=== PATIENT | female | born 1965 | race Caucasian/White ===

== ENCOUNTER → 2019-03-27 | Outpatient (CLI) | payer BC, SELFPAY ==
[2019-03-27 16:09] LABS: Anion Gap 8 (5-15); BUN 11 mg/dL (7-18); Calcium,Total 9.4 mg/dL (8.5-10.1); Chloride 106 mmol/L (98-107); Creatinine, Serum 0.65 mg/dL (0.55-1.02); EST Glomerular Filtration Rate 102 mL/min (>60); Est Glom Filt Rate - Afr Amer 123 mL/min (>60); Glucose 79 mg/dL (74-106); Potassium 3.4 mmol/L (3.5-5.1); Sodium Level 141 mmol/L (136-145); Thyroid Stim Hormone (TSH) 1.65 uIU/mL (0.358-3.74)
[2019-03-27 16:22] LABS: Vitamin D,25 Hydroxy 46.2 ng/mL (29.95-100.01)
== END | disposition home or self-care (01) ==
LOC: MFPLAB 14:24
PROVIDERS: Family Provider Family Medicine; PCP Family Medicine; Referring Provider Family Medicine; Visit Provider Family Medicine
DX: M79.10 Myalgia, unspecified site (principal)
CPT/HCPCS: 36415; 80048; 82306; 84443

== ENCOUNTER → 2020-05-22 16:07 | Outpatient (CLI) | payer BC, SELFPAY ==
[2020-05-14 13:29] VITALS: BMI 26.2
== END ==
PROVIDERS: PCP Family Medicine; Visit Provider Family Medicine
DX: Z20.828 Contact with and (suspected) exposure to other viral communicable diseases (principal)
CPT/HCPCS: 87635; U0003

== ENCOUNTER → 2020-07-08 10:29 | Outpatient (CLI) | payer BC, SELFPAY ==
[2020-05-14 13:29] VITALS: BMI 26.2
--- NOTE | 2020-07-08 10:32 | BI_ITS ---
MAMMOGRAPHY - BILATERAL SCREENING REASON FOR EXAM: Female, 54 years old. Routine annual screening examination. PERTINENT HISTORY: Non-contributory. TECHNIQUE: Digital bilateral breast gene (3D mammographic acquisition) in the CC and MLO projections. 2-D mediolateral oblique (MLO) and craniocaudad (CC) views of both breasts were obtained. CAD: Full Field Digital Mammography with Computer Added Detection was performed. COMPARISON: Comparison is made with prior outside examination dated 05/02/2015. FINDINGS: Breast Composition: The breasts are heterogeneously dense, which may obscure small masses. There are no dominant masses or suspicious calcifications. No other significant abnormalities are identified. There has been no significant change since the prior study. BI/SCREEN MAMM (CAD) W/GENE BILAT IMPRESSION: Stable bilateral screening mammogram. Yearly follow-up mammogram recommended. (A) ASSESSMENT CATEGORY: BIRADS Category 1: Negative. A letter regarding these results will be sent to the patient by the facility within 30 days. Approximately 10% of breast cancers are not detected by mammography. A normal mammogram should not delay biopsy of a clinically suspicious abnormality. [id number] Electronically Signed: Dylan Palencia, at 12:36 EST , Service support ,
== END ==
PROVIDERS: PCP Family Medicine; Referring Provider Obstetrics & Gynecology; Visit Provider Obstetrics & Gynecology
DX: Z12.31 Encounter for screening mammogram for malignant neoplasm of breast (principal)
CPT/HCPCS: 77063; 77067

== ENCOUNTER → 2021-04-07 11:26 | Outpatient (CLI) | payer BC, SELFPAY ==
[2021-04-07 15:23] LABS: Erythrocyte Sedimentation Rate 8 mm/hr (0-30)
[2021-04-07 15:24] LABS: Absolute Lymphocyte Count 1.24 X10^3/uL (0.83-4.51); Absolute Neutrophil Count 2.4 X10^3/uL (2.0-7.7); Basophil# 0.04 X10^3/uL; Basophil% 0.9 % (0-1); Eosinophil# 0.11 X10^3/uL; Eosinophils% 2.6 % (0-5); Hematocrit 39.2 % (37-47); Hemoglobin 12.9 g/dL (12.0-15.0); Lymphocyte # 1.24 X10^3/ul (0.83-4.51); Lymphocyte % 29.1 % (19-41); Mean Corp Hgb Conc 32.9 g/dL (32-36); Mean Corpuscular Hgb 29.2 pg (27.0-32.0); Mean Corpuscular Volume 88.7 fL (81-99); Mean Platelet Vol. 10.1 fl (6.2-12.0); Monocyte# 0.42 X10^3/uL; Monocyte% 9.9 % (0-10); NRBC Flagged by Analyzer 0 % (0-5); Neutrophil # 2.43 X10^3/uL (2.7-7.7); Platelet Count 259 K/mm3 (150-450); RBC Distribution Width CV 12.5 % (11.6-14.6); RBC Distribution Width SD 40.5 fl (35.1-43.9); Red Blood Count 4.42 M/mm3 (4.2-5.4); White Blood Count 4.3 K/mm3 (4.4-11.0)
[2021-04-07 16:01] LABS: AST(SGOT) 18 U/L (15-37); Alanine Aminotransfer ALT/SGPT 26 U/L (13-56); Albumin, Serum 3.8 g/dL (3.2-5.0); Alkaline Phosphatase 54 U/L (45-117); Anion Gap 7 (5-15); BUN 14 mg/dL (7-18); BUN/Creat Ratio 19.5 RATIO (10-20); Calcium,Total 9.2 mg/dL (8.5-10.1); Chloride 105 mmol/L (98-107); Creatinine, Serum 0.72 mg/dL (0.55-1.02); EST Glomerular Filtration Rate 90 mL/min (>60); Est Glom Filt Rate - Afr Amer 109 mL/min (>60); Free T3 3.2 pg/mL (2.18-3.98); Globulin 3.9 g/dL (2.2-4.2); Glucose 90 mg/dL (74-106); Iron 61 ug/dL (50-170); Potassium 3.5 mmol/L (3.5-5.1); Protein, Total 7.7 g/dL (6.4-8.2); Rheumatoid Factor < 10.0 IU/mL (<15); Sodium Level 141 mmol/L (136-145); Thyroid Stim Hormone (TSH) 1.43 uIU/mL (0.358-3.74)
[2021-04-07 16:55] LABS: Vitamin B12 589 pg/mL (211-911); Vitamin D,25 Hydroxy 35.7 ng/mL
[2021-04-09 14:46] LABS: ANTINUCLEAR ANTIBODIES DIRECT Negative (Negative)
[2021-04-23 15:22] LABS: Complement CH50 > 60 U/mL (>41)
== END ==
PROVIDERS: PCP Family Medicine; Referring Provider Family Medicine; Visit Provider Family Medicine
DX: M79.10 Myalgia, unspecified site (principal); R53.83 Other fatigue
CPT/HCPCS: 36415; 80053; 81291; 82306; 82533; 82607; 83540; 84439; 84443; 84481; 85025; 85652; 86038; 86140; 86162; 86431

== ENCOUNTER → 2022-06-08 | Outpatient (CLI) | payer BC, SELFPAY ==
[2022-06-08 15:12] LABS: Erythrocyte Sedimentation Rate 22 mm/hr (0-30)
[2022-06-08 15:15] LABS: Basophil# 0.05 X10^3/uL; Basophil% 0.8 % (0-1); Eosinophil# 0.09 X10^3/uL; Eosinophils% 1.5 % (0-5); Hematocrit 39.5 % (37-47); Hemoglobin 13.4 g/dL (12.0-15.0); Lymphocyte % 23.7 % (19-41); Mean Corp Hgb Conc 33.9 g/dL (32-36); Mean Corpuscular Hgb 29.3 pg (27.0-32.0); Mean Corpuscular Volume 86.4 fL (81-99); Mean Platelet Vol. 10.3 fl (6.2-12.0); Monocyte# 0.35 X10^3/uL; Monocyte% 5.9 % (0-10); NRBC Flagged by Analyzer 0 % (0-5); Neutrophil # 4.01 X10^3/uL (2.7-7.7); Neutrophil % 67.9 % (47-70); Platelet Count 338 K/mm3 (150-450); RBC Distribution Width CV 13.2 % (11.6-14.6); RBC Distribution Width SD 40.8 fl (35.1-43.9); Red Blood Count 4.57 M/mm3 (4.2-5.4); White Blood Count 5.9 K/mm3 (4.4-11.0)
[2022-06-08 15:18] LABS: Vitamin D,25 Hydroxy 31.1 ng/mL
[2022-06-08 15:32] LABS: Anion Gap 8 (5-15); BUN 12 mg/dL (7-18); BUN/Creat Ratio 19.4 RATIO (10-20); CRP 6.33 mg/L (0.0-3.0); Calcium,Total 9.4 mg/dL (8.5-10.1); Chloride 105 mmol/L (98-107); Creatinine, Serum 0.62 mg/dL (0.55-1.02); EST Glomerular Filtration Rate 106 mL/min (>60); Est Glom Filt Rate - Afr Amer 128 mL/min (>60); Glucose 93 mg/dL (74-106); Potassium 3.9 mmol/L (3.5-5.1); Sodium Level 140 mmol/L (136-145); T4 Free Direct 1.12 ng/dL (0.76-1.46); Thyroid Stim Hormone (TSH) 1.32 uIU/mL (0.358-3.74)
== END | disposition home or self-care (01) ==
LOC: MFPLAB 11:46
PROVIDERS: PCP Family Medicine; Referring Provider Family Medicine; Visit Provider Family Medicine
DX: M79.7 Fibromyalgia (principal); E55.9 Vitamin D deficiency, unspecified
CPT/HCPCS: 36415; 80048; 82306; 82533; 83735; 84439; 84443; 85025; 85652; 86140

== ENCOUNTER → 2022-11-24 | Outpatient (CLI) | payer BC, SELFPAY ==
--- NOTE | 2022-11-24 07:21 | BI_ITS ---
MAMMOGRAPHY - BILATERAL SCREENING REASON FOR EXAM: Female, 57 years old. Routine annual screening examination. PERTINENT HISTORY: Non-contributory. TECHNIQUE: Digital bilateral breast gnee (3D mammographic acquisition) in the CC and MLO projections. 2-D mediolateral oblique (MLO) and craniocaudad (CC) views of both breasts were obtained. CAD: Full Field Digital Mammography with Computer Added Detection was performed. COMPARISON: Mammogram from 07/08/2020. FINDINGS: Breast Composition: The breasts are heterogeneously dense, which may obscure small masses. There are no dominant masses or suspicious calcifications. No other significant abnormalities are identified. There has been no significant change since the prior study. BI/SCRN MAMM (CAD)W/GENE BILAT IMPRESSION: Stable bilateral screening mammogram. Yearly follow-up mammogram recommended. (A) ASSESSMENT CATEGORY: BIRADS Category 1: Negative. A letter regarding these results will be sent to the patient by the facility within 30 days. Approximately 10% of breast cancers are not detected by mammography. A normal mammogram should not delay biopsy of a clinically suspicious abnormality. Electronically Signed: Juanito Dunne DO at 9:51 EDT ,
== END | disposition home or self-care (01) ==
LOC: OPBI 07:19
PROVIDERS: PCP Family Medicine; Referring Provider Family Medicine; Visit Provider Family Medicine
DX: Z12.31 Encounter for screening mammogram for malignant neoplasm of breast (principal)
CPT/HCPCS: 77063; 77067

== ENCOUNTER → 2023-12-16 | Outpatient (CLI) | payer BC, SELFPAY ==
--- NOTE | 2023-12-16 09:53 | BI_ITS ---
MAMMOGRAPHY - BILATERAL SCREENING REASON FOR EXAM: Female, 58 years old. Routine annual screening examination. PERTINENT HISTORY: Non-contributory. TECHNIQUE: Digital bilateral breast gene (3D mammographic acquisition) in the CC and MLO projections. 2-D mediolateral oblique (MLO) and craniocaudad (CC) views of both breasts were obtained. CAD: Full Field Digital Mammography with Computer Added Detection was performed. COMPARISON: Comparison is made with prior study November 24, 2022 and July 08, 2020. FINDINGS: Breast Composition: The breasts are heterogeneously dense, which may obscure small masses. There are 2, adjacent 1 cm nodule seen in the deep upper aspect of the right breast as seen on the cranial cavity that view. These appear to be slightly lateral on the craniocaudad view. The patient will be recalled for additional views including a 90 degree lateral and compression spot views of the right breast. Stable bilateral fat containing axillary lymph nodes. No other significant abnormalities are identified. BI/SCRN MAMM (CAD)W/GENE BILAT IMPRESSION: There are 2 adjacent 1 cm nodules in the right breast as described. The patient will be recalled for additional views. Recall Side: Right Breast ASSESSMENT CATEGORY: BIRADS Category 0: Incomplete. Need additional imaging evaluation. A letter regarding these results will be sent to the patient by the facility within 30 days. Approximately 10% of breast cancers are not detected by mammography. A normal mammogram should not delay biopsy of a clinically suspicious abnormality. [id number] Electronically Signed: Dylan Palencia MD at 11:12 EDT ,
== END | disposition home or self-care (01) ==
LOC: OPBI 09:52
PROVIDERS: PCP Family Medicine; Referring Provider Family Medicine; Visit Provider Family Medicine
DX: Z12.31 Encounter for screening mammogram for malignant neoplasm of breast (principal)
CPT/HCPCS: 77063; 77067

== ENCOUNTER → 2023-12-20 | Outpatient (CLI) | payer BC, SELFPAY ==
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
== END | disposition home or self-care (01) ==
PROVIDERS: PCP Family Medicine; Referring Provider Family Medicine; Visit Provider Family Medicine
DX: R92.8 Other abnormal and inconclusive findings on diagnostic imaging of breast (principal)
CPT/HCPCS: 76642; 77065

== ENCOUNTER → 2023-12-30 | Outpatient (CLI) | payer BC, SELFPAY ==
--- NOTE | 2023-12-30 | BRBX_PTH ---
PATIENT: LARRY GODDARD LOC: [facility] U#:[id number] AGE/SX: 58/F ROOM: RE12/30/[address]: Dr. Clem Askew MD : 1965 BED: DIS: 12/30/2023 SPEC #: [id number] RECD: 12/30/23 16:06 STATUS: FLORENCIA TAN #: [id number] MARQUIS: 12/30/23 00:[address]: Clem Askew DEPT: SURGICAL PATHOLOGY RECD BY: Gianni Urena ENTERED: 01/02/24 07:40 SP TYPE: BREAST BX OTHR DR: Dr. Yared Elliott MD Tissues: A - Right breast, NOS B - Right breast, NOS Procedures: Surgery Specimen Level IV HEADER OPERATION: Ultrasound guided right breast biopsy PRE-OP DIAGNOSIS: Right breast abnormal mammogram and ultrasound TISSUE SUBMITTED: A- Right breast nodule fibroadenoma-medial, B- Right breast nodule round- lateral MICROSCOPIC DIAGNOSIS A. Right breast nodule, core biopsy: Fibroadenoma. B. Right breast nodule, lateral, core biopsy: Fibrosis and collagenosis. Minimal duct ectasia. No evidence of malignancy. / 01/03/2024 COMMENT Case has been reviewed in consultation with Dr. Haque who concurs with the above diagnosis. IDC:[email or web address] MICROSCOPIC DESCRIPTION Slides are reviewed. GROSS DESCRIPTION A. Received in fixative is one container labeled with the patient's name and designated Right breast #1. The specimen consists of multiple elongated fragments of sue -yellow tissue that in aggregate measure 2.5 x 0.5 x 0.1 cm. The specimen is totally submitted in one cassette. B. Received in fixative is one container labeled with the patient's name and designated Right breast #2. The specimen consists of multiple elongated fragments of sue -yellow tissue that in aggregate measure 2.5 x 0.5 x 0.1 cm. The specimen is totally submitted in one cassette. / 01/02/2024 TC:5 CPT:25092x4
--- NOTE | 2023-12-30 14:44 | US_ITS ---
ULTRASOUND GUIDED CORE BIOPSY REASON FOR EXAM: Female, 58 years old. Abnormal ultrasound of right breast PERTINENT HISTORY: Abnormal ultrasound of the right breast. COMPARISON: Comparison is made with prior ultrasound of the right breast dated December 20, 2023. TECHNIQUE: (All elements of maximal sterile barrier technique followed, including US elements as applicable) Upon arrival to the breast imaging department the patient''s identification was confirmed and the RIGHT breast was marked according to time-out protocol. Ultrasound guided core biopsy and clip placement, to include potential risks and complications, was explained in full to the patient. Written and verbal consent were obtained prior to initiation of the procedure. The RIGHT breast was prepped and draped in standard sterile fashion and local anesthesia was obtained with 1% buffered lidocaine. A small dermatotomy was then made to introduce the core biopsy needle. Under ultrasound guidance multiple core samples were obtained with a 13 gauge needle and submitted in formalin for pathology. A titanium clip was then deployed into the biopsy cavity under ultrasound guidance. Upon completion of the procedure hemostasis was obtained and sterile dressing was applied. The patient tolerated the entire procedure without immediate complication and was discharged from the breast imaging department in good condition. IMPRESSION: Ultrasound guided core biopsy of a 8 mm x 7 mm x 2 mm mass in the RIGHT breast at the 12:00 position of the breast at 2 cm from the nipple without complication. Electronically Signed: Dylan Palencia MD at 14:03 EDT , ULTRASOUND GUIDED CORE BIOPSY REASON FOR EXAM: Female, 58 years old. Abnormal ultrasound of breast PERTINENT HISTORY: Abnormal ultrasound of the right breast. COMPARISON: None. TECHNIQUE: (All elements of maximal sterile barrier technique followed, including US elements as applicable) Upon arrival to the breast imaging department the patient''s identification was confirmed and the RIGHT breast was marked according to time-out protocol. Ultrasound guided core biopsy and clip placement, to include potential risks and complications, was explained in full to the patient. Written and verbal consent were obtained prior to initiation of the procedure. The RIGHT breast was prepped and draped in standard sterile fashion and local anesthesia was obtained with 1% buffered lidocaine. A small dermatotomy was then made to introduce the core biopsy needle. Under ultrasound guidance multiple core samples were obtained with a 13 gauge needle and submitted in formalin for pathology. A titanium clip was then deployed into the biopsy cavity under ultrasound guidance. Upon completion of the procedure hemostasis was obtained and sterile dressing was applied. The patient tolerated the entire procedure without immediate complication and was discharged from the breast imaging department in good condition. US/US Breast Biopsy 1st Lesion IMPRESSION: Ultrasound guided core biopsy of a 5 mm x 4 mm x 4 mm mass in the RIGHT breast at the 11:00 position in the breast at 4 cm from the nipple. without complication. Electronically Signed: Dylan Palencia MD at 14:04 EDT ,
--- NOTE | 2023-12-30 15:51 | PCM.OPRPT ---
Report of Operation Date of Procedure: 12/30/23 Pre-Operative Diagnosis: Right breast abnormal mammogram and ultrasound Post-Operative Diagnosis: Same Surgery/Procedure Performed:: Ultrasound-guided biopsy of the right breast x 2 Type of Anesthesia: Local Specimen's removed: Biopsy of both breast areas Description of Procedure: Patient was brought back to the endoscopy suite and all 3 of the abnormalities found on ultrasound were identified. I decided to biopsy the possible fibroadenoma as well as the round lesion and not to biopsy the cyst. An area of skin lateral to these lesions at the 11 and 12 o'clock position was prepped and draped in usual sterile fashion and injected with local anesthetic. Small robinson was made with a scalpel. Under ultrasound guidance a mammotome needle was placed into the fibroadenoma like 1 at 12:00 and it was biopsied and then a coil clip was placed into this area. Next under ultrasound guidance the more lateral 11:00 round lesion was biopsied and then a ribbon clip was placed into this lesion. The patient did have a small hematoma forming from the first biopsy and pressure was held. A Steri-Strip and bandage were then placed over the incision and mammogram will be obtained. I advised the patient tight wrap for the hematoma and to call me if there is any large amount of swelling or tension in the breast.
== END | disposition home or self-care (01) ==
LOC: OPUS 14:42
PROVIDERS: PCP Family Medicine; Referring Provider Surgery; Visit Provider Surgery
DX: R92.8 Other abnormal and inconclusive findings on diagnostic imaging of breast (principal)
CPT/HCPCS: 19083; 19084; 88305

== ENCOUNTER 2024-04-27 16:25 | Emergency (ER) | payer SELFPAY ==
[2024-04-27 16:27] VITALS: BP 133/85; PULSE 116; RESP 17; TEMP 36.7; O2SAT 98; BMI 29.6
[2024-04-27 16:31] VITALS: O2SAT 98
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
--- NOTE | 2024-04-27 17:40 | RAD_ITS ---
INDICATION: great toe pain EXAMINATION/TECHNIQUE: X-RAY - LEFT XR Foot Min 3 Views 3 VIEWS COMPARISON: FINDINGS: SOFT TISSUES: No soft tissue swelling or gas. No radiopaque foreign body. BONES/JOINTS: No acute fracture or subluxation.. Normal alignment. Preservation of the joint space.. No sclerotic or destructive changes observed. RAD/Foot min 3 Views IMPRESSION: Negative. Electronically Signed: Yg Vang DO at 18:52 EDT ,
--- OUTSIDE RECORDS SUMMARY | 2024-04-27 17:47 | XMS RPT_ITS | CCD ---
Author Organization [facility] Care Team Providers Care Oncology Admin Name Role Phone Earl JACKSON, Yared Deena [facility] Provide r JONE MOLINA Attending Unava ilable [facility] Unavail able CLINT, REINAIvania CLARKRY Attending Unavailable [facility] CLINT, REINA SABRY Referring Unavailable CLINT, REINA SABRY Admitting Un[facility] CLINT, REINA SABRY Attending Unavailable [facility] CLINT, REINA SABRY Referring Unavailable CLINT, REINA SABRY Admitting [facility]available [facility] Primary Care Unavail able CLINT, REINA SABRY Attending Unavailable [facility]avail able FRANCISCO CANDELARIA JR. Attending Unavailable [facility] Unavail able TEAGAN JR., FRANCISCO Admitting Unavailable TEAGAN JR., FRANCISCO Referring Unavailable [facility]av[facility] CLINT, REINA SABRY Attending Unavailable [facility]av[facility] CLINT, REINA SABRY Referring Unavailable CLINT, REINA SABRY Admitting Unavailable [facility] Unavail able CLINT, REINA SABRY Attending Unavailable [facility]av[facility] able CLINT, REINA SABRY Referring Unavailable CLINT, REINA SABRY Admitting Unavailable Allergies Allergy Classification Reported Allergen(s) Allergy Type Date of Onset Reaction(s) Facility cow milk allergenic extract (1 source) cow milk allergenic extract Drug Allergy 07-18-2015 Anaphylaxis [facility] Lactase (1 source) Lactase Drug Allergy 04-25-2015 Anaphylaxis [facility] Wheat gluten extract (1 source) Wheat gluten extract Drug Allergy 04-25-2015 Anaphylaxis [facility] (7 sources) cow milk allergenic extract; Translations: [MILK] Drug Allergy 07-18-2015 Anaphylaxis [facility] (7 sources) Lactase; Translations: [LACTASE] Drug Allergy 04-25-2015 Anaphylaxis [facility] (7 sources) Wheat gluten extract; Translations: [GLUTEN] Drug Allergy 04-25-2015 Anaphylaxis [facility] Medications Current Medications Medication Drug Class(es) Dates Sig (Normalized) Sig (Original) biotin 5 mg oral capsule (5 sources) End: 12-30-2023 biotin 5 mg cap 1 (one) capsule (5 mg total) every night at bedtime . 12/30/2023 Discontinued (Patient's Request) cyclobenzaprine hydrochloride 10 mg oral tablet (6 sources) Muscle Relaxant cyclobenzaprine (FLEXERIL) 10 MG tablet 1 (one) tablet (10 mg total) . Active DULoxetine 30 mg delayed release oral capsule (6 sources) Serotonin and Norepinephrine Reuptake Inhibitor take 1 capsule by mouth once daily DULoxetine (CYMBALTA) 30 MG capsule Take 1 (one) capsule (30 mg total) by mouth daily . Active fluticasone propionate 0.05 mg/actuat metered dose nasal spray (6 sources) Corticosteroid fluticasone propionate (Flonase Allergy Relief) 50 mcg/actuation nasal spray 1 (one) spray every night at bedtime . Active meloxicam 15 mg oral tablet (6 sources) Nonsteroidal Anti-inflammatory Drug take 1 tablet by mouth once daily meloxicam (MOBIC) 15 MG tablet Take 1 (one) tablet (15 mg total) by mouth daily . Active traZODone hydrochloride 100 mg oral tablet (6 sources) Serotonin Reuptake Inhibitor take 0.5 tablet by mouth once daily as needed for sleep traZODone (DESYREL) 100 MG tablet Take 0.5 (one-half) tablet (50 mg total) by mouth nightly as needed for sleep . Active take 1 tablet by jaqueline th once daily as needed for sleep traZODone (DESYREL) 100 MG tablet Take 1 (one) tablet (100 mg total) by mouth nightly as needed for sleep . 0 Active Completed/Discontinued Medications Medication Drug Class(es) Dates Sig (Normalized) Sig (Original) acetaminophen 325 mg / oxyCODONE hydrochloride 5 mg oral tablet (1 source) Opioid Agonist Start: 10-22-2023 End: 10-25-2023 take 1 tablet by mouth every six hours as needed for pain oxyCODONE-acetamino phen (PERCOCET) 5-325 mg per tablet Indications: Closed nondisplaced fracture of fifth metatarsal bone of right foot, initial encounter Take 1 (one) tablet by mouth every 6 (six) hours as needed for pain . 12 tablet 0 10/22/2023 10/25/2023 Problems Active Problems Problem Classification Problem Date Documented Da te Episodic/Chronic Other connective tissue disease (4 sources) Pain in right foot; Translations: [Pain in right foot] 10-24-2023 Episodic Past or Other Problems Problem Classification Problem Date Documented Da te Episodic/Chronic Fracture of lower limb (12 sources) Closed fracture of fifth metatarsal bone; Translations: [Nondisplaced fracture of fifth metatarsal bone, right foot, initial encounter for closed fracture] Onset: 10-22-2023 10-24-2023 Episodic Other connective tissue disease (2 sources) Pain in right foot; Translations: [Pain in right foot] Onset: 10-24-2023 Episodic Results Test Name Value Interpretation Reference Range Facil ity XR FOOT RIGHT 3+ VIEWS (JESSICA DARD)on 01-17-2024 XR FOOT RIGHT 3+ VIEWS (STANDARD) Improved osseous consolidation/trabecu lation at the base of the fifth metatarsal fracture site in comparison to prior radiographs. Dictated by: REINA JARAMILLO on TueJan 18, 2024 1:43:16 AM EDT Transcribed by: REINA JARAMILLO on TueJan 18, 2024 1:43:16 AM EDT Finalized by: REINA JARAMILLO on TueJan 18, 2024 1:43:16 AM EDT Normal [facility] Comment on above: Order Comment: Injur y/Trauma or Illness?:Injury/Trauma How long have you had these symptoms (acute/chronic)?:Chronic Reason for exam?:metatarsal fracture History of cancer?:n Surgeries, chemotherapy, or radiation?:n Type of Exam?:Subsequent/Follow-up Mechanism of injury?:steped off porch XR FOOT RIGHT 3+ VIEWS (JESSICA DARD)on 12-27-2023 XR FOOT RIGHT 3+ VIEWS (STANDARD) Improved osseous consolidation/trabecu lation at the base of the fifth metatarsal fracture site in comparison to prior radiographs. Dictated by: REINA JARAMILLO on TueDec 30, 2023 3:40:35 AM EDT Transcribed by: REINA JARAMILLO on TueDec 30, 2023 3:40:35 AM EDT Finalized by: REINA JARAMILLO on TueDec 30, 2023 3:40:[address] [facility] Comment on above: Order Comment: Injur y/Trauma or Illness?:Injury/Trauma How long have you had these symptoms (acute/chronic)?:Acute Reason for exam?:metatarsal fracture History of cancer?:n Surgeries, chemotherapy, or radiation?:n Type of Exam?:Subsequent/Follow-up Mechanism of injury?:stepped off porch Cast removalon 12-07-2023 Danyll removed cast [facility] XR FOOT RIGHT 3+ VIEWS (JESSICA DARD)on 12-07-2023 XR FOOT RIGHT 3+ VIEWS (STANDARD) Mildly comminuted fifth metatarsal base fracture consistent with a Conner. Cast present. Increased trabeculation based on radiographs compared to prior radiographs seen. Dictated by: FRANCISCO CANDELARIA on TueDec 07, 2023 5:13:02 PM EDT Transcribed by: FRANCISCO CANDELARIA on TueDec 07, 2023 5:13:02 PM EDT Finalized by: FRANCISCO CANDELARIA on TueDec 07, 2023 5:13:02 PM EDT [facility] Comment on above: Order Comment: Injur y/Trauma or Illness?:Illness/Other How long have you had these symptoms (acute/chronic)?:Chronic Reason for exam?:metatarsal fracture History of cancer?:n Surgeries, chemotherapy, or radiation?:n Type of Exam?:Subsequent/Follow-up Additional signs and symptoms?:in cast XR FOOT RIGHT 3+ VIEWS (JESSICA DARD)on 11-14-2023 XR FOOT RIGHT 3+ VIEWS (STANDARD) Minimally displaced fifth metatarsal base fracture without any appreciable osseous consolidation No new gapping or diastases noted. Dictated by: REINA JARAMILLO on TueNovember 25, 2023 3:18:30 PM EDT Transcribed by: REINA JARAMILLO on TueNovember 25, 2023 3:18:30 PM EDT Finalized by: REINA JARAMILLO on TueNovember 25, 2023 3:18:[address] [facility] Comment on above: Order Comment: Injur y/Trauma or Illness?:Injury/Trauma How long have you had these symptoms (acute/chronic)?:Acute Reason for exam?:5th metatarsal fracture History of cancer?:n Surgeries, chemotherapy, or radiation?:n Type of Exam?:Subsequent/Follow-up Mechanism of injury?:fall off porch Apply walking booton [place] applied cam boot [facility] Apply walking bootOrdered By : Ban Adkins on 10-24-2023 [facility] XR FOOT RIGHT 3+ VIEWS (JESSICA DARJulian)on 10-24-2023 XR FOOT RIGHT 3+ VIEWS (STANDARD) Nondisplaced fifth metatarsal base fracture Joint spaces are within normal limits. No other fractures or dislocations noted. Dictated by: REINA JARAMILLO on TueOct 28, 2023 4:28:00 AM EDT Transcribed by: REINA JARAMILLO on TueOct 28, 2023 4:28:00 AM EDT Finalized by: REINA JARAMILLO on TueOct 28, 2023 4:28:[address] [facility] Comment on above: Order Comment: Injur y/Trauma or Illness?:Injury/Trauma How long have you had these symptoms (acute/chronic)?:Acute Reason for exam?:metatarsal fracture History of cancer?:n Surgeries, chemotherapy, or radiation?:n Type of Exam?:Initial Mechanism of injury?:slip on step XR FOOT RIGHT 3+ VIEWS (JESSICA DARD)on 10-22-2023 XR FOOT RIGHT 3+ VIEWS (STANDARD) EXAMINATION: XR FOOT RIGHT 3+ VIEWS (STANDARD) HISTORY: ORDERING SYSTEM PROVIDED HISTORY: foot pain, TECHNOLOGIST PROVIDED HISTORY: Injury/Trauma Reason for exam: pain Cancer History: n Surgery, RadiationHistory: n Encounter Type: Initial Mechanism of injury: fall ORDERING SYSTEM PROVIDED DIAGNOSIS CODES: COMPARISON: None FINDINGS: Three views of the right foot. There is an acute nondisplaced obliquely oriented fracture through the base/tuberosity of the 5th metatarsal in zone 1 compatible with an avulsion fracture. There is overlying soft tissue swelling. Mild 1st MTP joint degenerative changes. Remainder of the examination is unremarkable. IMPRESSION: Acute nondisplaced fracture through zone 1 of the 5th metatarsal base/avulsion fracture. Workstation ID: [id number] Dictated by: CARROLL TRINIDAD on Sat Oct 22, 2023 11:22:15 AM EDT Transcribed by: CARROLL TRINIDAD on Sat Oct 22, 2023 11:22:15 AM EDT Finalized by: CARROLL TRINIDAD on Sat Oct 22, 2023 11:22:15 AM EDT [facility] Comment on above: Order Comment: Injur y/Trauma or Illness?:Injury/Trauma How long have you had these symptoms (acute/chronic)?:Acute Reason for exam?:pain History of cancer?:n Surgeries, chemotherapy, or radiation?:n Type of Exam?:Initial Mechanism of injury?:fall CNOVon 12-17-2018 CNOV Office Visit ([facility] ) RUPESHLARRY L ([id number]) 1965 F Date Time Provider Department 12/17/18 9:00 AM INDIGO TREADWELL ([facility]) [facility] During your visit today, we recorded the following information about you: Temperature Pulse Blood pressure Weight 97.6 degrees 73/minute 118/80 69.2 kg Indigo Treadwell APRN.CNP 12/17/2018 9:28 AM Signed Subjective HPI HPI Larry Goddard is a 53 year old female who presents today for CC of cough, congestion. This started cough, congestion. Has tried 3 weeks, much worse in past 4 days. Symptoms are worsened by nothing known. Risk factors sick exposures at work. nonsmoker .Patient presents with: Cough: congestion and coughing x tuesday PAST MEDICAL HISTORY Diagnosis Date - Fibromyalgia PAST SURGICAL HISTORY Procedure Laterality Date - SALPINGECTOMY Bilateral 07/24/15 - VAGINAL HYSTERECTOMY 07/24/15 [facility] - benign path- FIBROIDS ALLERGIES Dairy Aid [Lactase]; Gluten MEDICATIONS traZODone (DESYREL) 50 mg tablet Take 50 mg by mouth daily at bedtime. meloxicam (MOBIC) 15 mg tablet Take 15 mg by mouth once daily. norethindrone (AYGESTIN) 5 mg tablet Take one tablet three times daily until bleeding stops and then one tablet daily cyclobenzaprine (FLEXERIL) 10 mg tablet Take 10 mg by mouth three times daily as needed. fexofenadine (BLESSING) 180 mg tablet Take 180 mg by mouth once daily. misoprostol (CYTOTEC) 200 mcg tablet Take 2 tablets night before procedure and 2 tablets morning of procedure. No family history on file. Social History Tobacco Use - Smoking status: Never Smoker - Smokeless tobacco: Never Used Substance Use Topics - Alcohol use: Yes Comment: occa - Drug use: No Review of Systems Constitutional: Negative for fever. HENT: Positive for congestion. Negative for ear pain, nosebleeds and sore throat. Respiratory: Positive for cough. Negative for shortness of breath and wheezing. Musculoskeletal: Negative for neck pain. Objective Blood pressure 118/80, pulse 73, temperature 36.4 ?C (97.6 ?F), temperature source Tympanic, weight 69.2 kg (152 lb 9.6 oz), last menstrual period 05/15/2015, SpO2 97 %. Physical Exam Constitutional: She is oriented to person, place, and time and well-developed, well-nourished, and in no distress. Non-toxic appearance. She has a sickly appearance (mild). No distress. HENT: Head: Normocephalic and atraumatic. Right Ear: Hearing, tympanic membrane, external ear and ear canal normal. Left Ear: Hearing, tympanic membrane, external ear and ear canal normal. Nose: Rhinorrhea present. Right sinus exhibits maxillary sinus tenderness. Left sinus exhibits maxillary sinus tenderness. Mouth/Throat: Uvula is midline, oropharynx is clear and moist and mucous membranes are normal. Eyes: Pupils are equal, round, and reactive to light. Conjunctivae and lids are normal. Right eye exhibits no discharge. Left eye exhibits no discharge. No scleral icterus. Neck: Trachea normal and normal range of motion. Neck supple. Cardiovascular: Normal rate, regular rhythm and normal heart sounds. Pulmonary/Chest: Effort normal and breath sounds normal. Lymphadenopathy: She has no cervical adenopathy. Neurological: She is alert and oriented to person, place, and time. Skin: No rash noted. She is not diaphoretic. ASSESSMENT/PLAN: 1. Sinobronchitis - ICD9: 473.9, 490, ICD10: J32.9, J40 - Will begin treatment with Doxycline - Supportive care with plenty of fluids, rest, and analgesia prn. - Follow up in 3-5 days if symptoms persist or worsen. -If you experience chest pain/shortness of breath go to ER Prescription instructions reviewed with patient as applicable. Patient advised if symptoms do not improve or if symptoms worsen sooner, to contact the office for further evaluation by their primary care physician. Potential red flag symptoms discussed with the patient. Reviewed appropriate action plan to take if red flag symptoms occur. Patient agreeable to treatment plan. Indigo Treadwell APRN.ALIX Treadwell APRN.ALIX 12/17/2018 9:25 AM Signed ASSESSMENT/PLAN: 1. Sinobronchitis - ICD9: 473.9, 490, ICD10: J32.9, J40 - Will begin treatment with Doxycline - Supportive care with plenty of fluids, rest, and analgesia prn. - Follow up in 3-5 days if symptoms persist or worsen. -If you experience chest pain/shortness of breath go to ER Referring Provider: SELF [[id number]] Allergies As of Date: 12/17/2018 Noted Allergy Reaction DAIRY AID (LACTASE) 04/25/2015 10 - Anaphylaxis GLUTEN 04/25/2015 10 - Anaphylaxis Date Reviewed: 12/17/2018 Reviewed by: Bev Sauer MA - Fully Assessed Reason for Visit: Cough [28] Cmt: congestion and coughing x tuesday Primary Visit Diagnosis:Sinobronchi tis [J32.9, J40] Order(s):doxycycline monohydrate 100 mg tabletTake 1 tablet by mouth twice daily for 10 days.Disp: 20 tabletRfl: 0 Prescriptions as of 12/17/2018 Sig: TRAZODONE 50 MG TABLET Take 50 mg by mouth daily at * MELOXICAM 15 MG TABLET Take 15 mg by mouth once ju* DOXYCYCLINE MONOHYDRATE 100 M* Take 1 tablet by mouth twice * NORETHINDRONE ACETATE 5 MG TA* Take one tablet three times d* Patient not taking: Reported on 12/17/2018 CYCLOBENZAPRINE 10 MG TABLET Take 10 mg by mouth three deysi* FEXOFENADINE 180 MG TABLET Take 180 mg by mouth once jake* MISOPROSTOL 200 MCG TABLET Take 2 tablets night before p* Patient not taking: Reported on 12/17/2018 Problem List As Of Date 12/17/2018 Noted Resolved Intramural leiomyoma of uterus [D25.1] INVALID FOR* Other instructions from your clinician: ASSESSMENT/PLAN: 1. Sinobronchitis - ICD9: 473.9, 490, ICD10: J32.9, J40 - Will begin treatment with Doxycline - Supportive care with plenty of fluids, rest, and analgesia prn. - Follow up in 3-5 days if symptoms persist or worsen. -If you experience chest pain/shortness of breath go to ER Prescriptions ordered this encounter Disp Refills Start End DOXYCYCLINE MONOHYDRATE 100 MG TABLET 20 t* 0 12/17/2018 12/27/2018 Cmt: May transfer to [facility] if less expensive. Route: ORAL Sig: Take 1 tablet by mouth twice daily for 10 days. Encounter Status:Closed by INDIGO TREADWELL CNP on 12/17/18 Normal [facility] PROGRESSon 12-17-2018 Protein mass conc HNO ID: [id number] Author: Indigo Bustillos) Service: ? Author Type: Nurse Practitioner Type: Progress Notes Filed: 12/17/2018 9:28 AM Note Text: Subjective HPI HPI Larry Goddard is a 53 year old female who presents today for CC of cough, congestion. This started cough, congestion. Has tried 3 weeks, much worse in past 4 days. Symptoms are worsened by nothing known. Risk factors sick exposures at work. nonsmoker .Patient presents with: Cough: congestion and coughing x tuesday PAST MEDICAL HISTORY Diagnosis Date - Fibromyalgia PAST SURGICAL HISTORY Procedure Laterality Date - SALPINGECTOMY Bilateral 07/24/15 - VAGINAL HYSTERECTOMY 07/24/15 [facility] - benign path- FIBROIDS ALLERGIES Dairy Aid [Lactase]; Gluten MEDICATIONS traZODone (DESYREL) 50 mg tablet Take 50 mg by mouth daily at bedtime. meloxicam (MOBIC) 15 mg tablet Take 15 mg by mouth once daily. norethindrone (AYGESTIN) 5 mg tablet Take one tablet three times daily until bleeding stops and then one tablet daily cyclobenzaprine (FLEXERIL) 10 mg tablet Take 10 mg by mouth three times daily as needed. fexofenadine (BLESSING) 180 mg tablet Take 180 mg by mouth once daily. misoprostol (CYTOTEC) 200 mcg tablet Take 2 tablets night before procedure and 2 tablets morning of procedure. No family history on file. Social History Tobacco Use - Smoking status: Never Smoker - Smokeless tobacco: Never Used Substance Use Topics - Alcohol use: Yes Comment: occa - Drug use: No Review of Systems Constitutional: Negative for fever. HENT: Positive for congestion. Negative for ear pain, nosebleeds and sore throat. Respiratory: Positive for cough. Negative for shortness of breath and wheezing. Musculoskeletal: Negative for neck pain. Objective Blood pressure 118/80, pulse 73, temperature 36.4 ?C (97.6 ?F), temperature source Tympanic, weight 69.2 kg (152 lb 9.6 oz), last menstrual period 05/15/2015, SpO2 97 %. Physical Exam Constitutional: She is oriented to person, place, and time and well-developed, well-nourished, and in no distress. Non-toxic appearance. She has a sickly appearance (mild). No distress. HENT: Head: Normocephalic and atraumatic. Right Ear: Hearing, tympanic membrane, external ear and ear canal normal. Left Ear: Hearing, tympanic membrane, external ear and ear canal normal. Nose: Rhinorrhea present. Right sinus exhibits maxillary sinus tenderness. Left sinus exhibits maxillary sinus tenderness. Mouth/Throat: Uvula is midline, oropharynx is clear and moist and mucous membranes are normal. Eyes: Pupils are equal, round, and reactive to light. Conjunctivae and lids are normal. Right eye exhibits no discharge. Left eye exhibits no discharge. No scleral icterus. Neck: Trachea normal and normal range of motion. Neck supple. Cardiovascular: Normal rate, regular rhythm and normal heart sounds. Pulmonary/Chest: Effort normal and breath sounds normal. Lymphadenopathy: She has no cervical adenopathy. Neurological: She is alert and oriented to person, place, and time. Skin: No rash noted. She is not diaphoretic. ASSESSMENT/PLAN: 1. Sinobronchitis - ICD9: 473.9, 490, ICD10: J32.9, J40 - Will begin treatment with Doxycline - Supportive care with plenty of fluids, rest, and analgesia prn. - Follow up in 3-5 days if symptoms persist or worsen. -If you experience chest pain/shortness of breath go to ER Prescription instructions reviewed with patient as applicable. Patient advised if symptoms do not improve or if symptoms worsen sooner, to contact the office for further evaluation by their primary care physician. Potential red flag symptoms discussed with the patient. Reviewed appropriate action plan to take if red flag symptoms occur. Patient agreeable to treatment plan. Indigo Treadwell APRN.SENIOR IT PROJECT MANAGER Normal [facility] Vital Signs Date Time Vital Sign Value Performing Clinician Karen rincon 01-17-2024 10:27-0400 Body temperature 100.4 [degF] Reina Clint DPM Work Phone: [facility] 01-17-2024 10:27-0400 Diastolic blood pressure 69 mm[Hg] Reina Clint DPM Work Phone: [facility] 01-17-2024 10:27-0400 Heart rate 84 /min Reina Clint DPM Work Phone: [facility] 01-17-2024 10:27-0400 Systolic blood pressure 110 mm[Hg] Reina [place]ch DPM Work Phone: [facility] 12-27-2023 13:40-0400 Body temperature 97.9 [degF] Reina [place] DPM Work Phone: [facility] 12-27-2023 13:40-0400 Diastolic blood pressure 72 mm[Hg] Reina [place] DPM Work Phone: [facility] 12-27-2023 13:40-0400 Heart rate 82 /min Reina Clint DPM Work Phone: [facility] 12-27-2023 13:40-0400 Systolic blood pressure 122 mm[Hg] Reina Clint DPM Work Phone: [facility] 12-07-2023 15:48-0400 Body temperature 99 [degF] Francisco Candelaria Jr. DPM Work Phone: [facility] 12-07-2023 15:48-0400 Diastolic blood pressure 74 mm[Hg] Francisco Teagan Jr., DPM Work Phone: [facility] 12-07-2023 15:48-0400 Heart rate 84 /min Francisco Teagan Jr., DPM Work Phone: [facility] 12-07-2023 15:48-0400 Systolic blood pressure 113 mm[Hg] Francisco Teagan Jr., DPM Work Phone: [facility] 11-15-2023 07:58-0400 Body temperature 97.5 [degF] Reina Clint DPM Work Phone: [facility] 11-15-2023 07:58-0400 Diastolic blood pressure 72 mm[Hg] Reina Clint DPM Work Phone: [facility] 11-15-2023 07:58-0400 Heart rate 85 /min Renia [place] DPM Work Phone: [facility] 11-15-2023 07:58-0400 Systolic blood pressure 108 mm[Hg] Reina [place] DPM Work Phone: [facility] 11-14-2023 10:17-0400 Body temperature 98.4 [degF] Reina [place] DPM Work Phone: [facility] 11-14-2023 10:17-0400 Diastolic blood pressure 72 mm[Hg] Reina [place] DPM Work Phone: [facility] 11-14-2023 10:17-0400 Heart rate 97 /min Reina Clint DPM Work Phone: [facility] 11-14-2023 10:17-0400 Systolic blood pressure 115 mm[Hg] Reina [place] DPM Work Phone: [facility] 10-24-2023 15:48-0400 Body temperature 97.9 [degF] Reina [place] DPM Work Phone: [facility] 10-24-2023 15:48-0400 Diastolic blood pressure 80 mm[Hg] Reina Clint DPM Work Phone: [facility] 10-24-2023 15:48-0400 Heart rate 85 /min Reina Clint DPM Work Phone: [facility] 10-24-2023 15:48-0400 Systolic blood pressure 113 mm[Hg] Reina Clint DPM Work Phone: [facility] Encounters Encounter Date Encounter Type Care Provider Facility Start: 01-17-2024 End: 01-17-2024 Postop follow up visit related to original px Reina Sabry [place] DPM Work Phone: [facility] Comment on above: Closed nondisplaced fracture of fifth metatarsal bone of right foot with routine healing, subsequent encounter (Primary Dx) Start: 01-17-2024 End: 01-21-2024 [facility] Start: 12-27-2023 End: 12-27-2023 Postop follow up visit related to original px Reina Sabry [place] DPM Work Phone: [facility] Comment on above: Nondisplaced fractur e of fifth metatarsal bone, right foot, initial encounter for closed fracture (Primary Dx); Right foot pain Start: 12-27-2023 End: 12-31-2023 [facility] Start: 12-07-2023 End: 12-07-2023 Postop follow up visit related to original px Francisco Candelaria DPM Work Phone: [facility] Comment on above: Nondisplaced fractur e of fifth metatarsal bone, right foot, initial encounter for closed fracture (Primary Dx) Start: 12-07-2023 End: 12-11-2023 ambulatory FRANCISCO CANDELARIA JR. [facility] Start: 11-15-2023 End: 11-15-2023 Patient encounter procedure Reina Sabry [place] DPM Work Phone: [facility] Comment on above: Nondisplaced fractur e of fifth metatarsal bone, right foot, initial encounter for closed fracture (Primary Dx); Right foot pain Start: 11-15-2023 End: 11-15-2023 ambulatory REINA JARAMILLO [facility] Start: 11-14-2023 End: 11-14-2023 Postop follow up visit related to original px Reina Jaramillo DPM Work Phone: [facility] Comment on above: Nondisplaced fractur e of fifth metatarsal bone, right foot, initial encounter for closed fracture (Primary Dx); Right foot pain Start: 11-14-2023 End: 11-18-2023 ambulatory REINAIvania ELR [facility] Start: 10-24-2023 End: 10-24-2023 Office outpatient new 30 minutes Reina Jaramillo DPM Work Phone: [facility] Comment on above: Nondisplaced fractur e of fifth metatarsal bone, right foot, initial encounter for closed fracture (Primary Dx); Right foot pain Start: 10-24-2023 End: 10-28-2023 ambulatory REINAIvania ELR [facility] Start: 10-22-2023 End: 10-22-2023 Emergency department patient visit JONE NEGRO [facility] Procedures Date Procedure Procedure Detail Performing Clinician Start: 12-07-2023 CAST REMOVAL Francisco mims DPM Work Phone: Start: 11-14-2023 Follow-up visit Follow-up REINA JARAMILLO Start: 10-24-2023 APPLY WALKING BOOT Reina Jaramillo DPM Work Phone: Plan of Treatment Date Care Activity Detail Author Start: 10-01-2031 Tetanus vaccination Tetanus: Every 10yrs [facility] Start: 03-04-2024 Influenza vaccination [facility] Start: 01-17-2024 End: 01-17-2024 Patient encounter procedure 01/17/2024 10:30 AM EDT Office Visit [facility] [address] [place] [address] Reina Jaramillo, DPM [address] [place] [address] [facility] Start: 12-27-2023 End: 12-27-2023 Patient encounter procedure 12/27/2023 2:15 PM EDT Office Visit [facility] [address] [place] [address] Reina Jaramillo, DPM [address] [place] [address] [facility] Start: 12-07-2023 End: 12-07-2023 Patient encounter procedure 12/07/2023 4:00 PM EDT Office Visit [facility] [address] [place] [address] Francisco Candelaria Jr., DPM [address] [place] [address] [facility] Start: 11-14-2023 End: 11-14-2023 Patient encounter procedure 11/14/2023 10:30 AM EDT Office Visit [facility] [address] [place] [address] Reina Jaramillo, DPLoida [address] [place] [address] [facility] Start: 03-04-2023 COVID-19 Vaccine ( season) COVID-19 Vaccine ( season) [facility] Start: 2016 Administration of herpes zoster vaccine Zoster Vaccines (1 of 2) [facility] Start: 2016 Screening for malignant neoplasm of colon Flexible sigmoidoscopy [facility] Start: 2006 Screening for malignant neoplasm of breast Mammogram [facility] Start: 1984 Hepatitis C screening Hepatitis C Screening [facility] Start: 1981 HIV screening HIV Screening [facility] Start: 1978 Depression screening using PHQ-9 (Patient Health Questionnaire 9) score [facility] Start: 1969 History and physical examination, annual for health maintenance Wellness Visit [facility] Start: 1966 Screening for malignant neoplasm of colon [facility] Immunizations Immunization Date Immunization Notes Care Provider Fa cility 03-27-2019 influenza virus vacc ine, unspecified formulation Reina Jaramillo DPM Work Phone: [facility] Payers Date Payer Category Payer Unknown [employer]/PREF/HMO/PPO [id number] 2021-Present [phone] [address] [place] [address] [id number] 2021 Unknown [id number] 1965 Unknown [id number] 1966 Unknown [id number] 1966 Unknown [id number] 1966 Unknown [id number] 1966 Unknown [id number] 1966 Unknown [id number] 1966 Unknown [id number] 1966 Unknown [id number] 1966 Unknown [id number] 1966 Unknown [id number] 1966 Unknown [id number] 1965 Unknown [id number] Social History Date Type Detail Facility Start: 10-22-2023 Tobacco smoking stat [facility] Never smoked tobacco [facility] Start: 10-22-2023 Tobacco use and exposure Smoke less tobacco non-user [facility] Start: 10-24-2023 End: 12-27-2023 History of Social function [facility] Start: 10-24-2023 End: 12-27-2023 Tobacco use panel [facility] Start: 1965 Sex Assigned At Not on file [facility] Start: 10-22-2023 Gender identity Identifies as female gender (finding) [facility] Start: 10-22-2023 Sexual orientation Heterosexual (fin ding) [facility] NEGATED: Highlighted rowStart: NINF History of tobacco use Passive smoker [facility] Clinical Notes 10-25-2023 to 01-18-2024 Reina Jaramillo, ALIA - 01/18/2024 1:23 AM EDTReina Jaramillo, ALIA - 12/30/2023 3:35 AM EDTPatient InstructionsFrancisco Candelaria Jr., DIANA - 12/07/2023 4:16 PM EDTPatient Instructions Note Date & Type Note Facility 01-18-2024 Note Julian Bardales PM Patient Name: Larry Goddard. . Date of : 1965, 58 y.o.. Gender: female. Subjective: Patient is a pleasant 58-year-old female who presents to clinic for follow-up evaluation regarding her right fifth metatarsal base fracture. Patient has been weightbearing as tolerated in a tall cam boot. Patient states she is doing very well and has no pain. Denies any recent trauma or injury. Denies fevers, chills, nausea, vomiting, chest pain, shortness of breath, or any other constitutional symptoms. Past Medical History: Diagnosis Date Fibromyalgia Past Surgical History: Procedure Laterality Date BREAST BIOPSY 12/30/2023 HYSTERECTOMY Social History Socioeconomic History Marital status: Tobacco Use Smoking status: Never Passive exposure: Never Smokeless tobacco: Never Vaping Use Vaping status: Never Used Substance and Sexual Activity Drug use: Never Physical Examination: BP 110/69 (BP Location: Right arm, Patient Position: Sitting, BP Cuff Size: Adult) Pulse 84 Temp (!) 100.4 degrees F (38 degrees C) (Infrared) LMP (LMP Unknown) General Appearance: Alert, cooperative, no distress, appears stated age. Podiatric Exam Vascular: DP and PT pulses are palpable 2/4. Capillary refill time is less than 3 secs to distal digits. Skin temperature is warm to warm from proximal tibial tuberosity to distal digit. No appreciable edema to bilateral foot or ankle. Neurological: Gross sensation is intact. Protective sensation is intact. Dermatologic: No ecchymosis. No edema. Interdigital spaces are clean dry and intact. Musculoskeletal: No pain on palpation to the fifth metatarsal base, right foot. Patient is able to wiggle digits. Ankle joint range of motion is intact. Muscle strength is 5/5 to dorsiflexors, plantar flexors, inverters and everters. Compartments soft and compressible. No calf pain Diagnoses: 1. Closed nondisplaced fracture of fifth metatarsal bone of right foot with routine healing, subsequent encounter Imaging: Right foot 3 views weightbearing radiographs were ordered and interpreted as follows: Improved osseous consolidation/trabeculation at the base of the fifth metatarsal fracture site in comparison to prior radiographs. Assessment/Plan: Patient was seen and evaluated. Discussed all clinical findings. I ordered, interpreted, and discussed right foot radiographic findings with patient as noted above. Patient's fracture site on the right foot fifth metatarsal base is healing well. No discrete fracture line noted. Instructed the patient to begin to transition out of the tall cam boot into good supportive tennis shoes. Patient can transition to all activity as tolerated. All questions were answered to patient satisfaction. Patient understands to call with any questions or concerns. Follow-up as needed. This note was partially created using voice recognition software and is inherently subject to errors including those of syntax and sound-alike substitutions which may escape proofreading. In such instances, original meaning may be extrapolated by contextual derivation. Reina Jaramillo DPM, MS Podiatric Physician & Surgeon AUTHENTICATED BY REINA JARAMILLO, ON 01/18/2024 01:25:13 [facility] 01-18-2024 History of Presen t illness Narrative Images from the original note were not included. Reina Jaramillo DPM Patient Name: Larry Goddard. . Date of : 1965, 58 y.o.. Gender: female. Subjective: Patient is a pleasant 58-year-old female who presents to clinic for follow-up evaluation regarding her right fifth metatarsal base fracture. Patient has been weightbearing as tolerated in a tall cam boot. Patient states she is doing very well and has no pain. Denies any recent trauma or injury. Denies fevers, chills, nausea, vomiting, chest pain, shortness of breath, or any other constitutional symptoms. Past Medical History: Diagnosis Date Fibromyalgia Past Surgical History: Procedure Laterality Date BREAST BIOPSY 12/30/2023 HYSTERECTOMY Social History Socioeconomic History Marital status: Tobacco Use Smoking status: Never Passive exposure: Never Smokeless tobacco: Never Vaping Use Vaping status: Never Used Substance and Sexual Activity Drug use: Never Physical Examination: BP 110/69 (BP Location: Right arm, Patient Position: Sitting, BP Cuff Size: Adult) Pulse 84 Temp (!) 100.4 F (38 C) (Infrared) LMP (LMP Unknown) General Appearance: Alert, cooperative, no distress, appears stated age. Podiatric Exam Vascular: DP and PT pulses are palpable 2/4. Capillary refill time is less than 3 secs to distal digits. Skin temperature is warm to warm from proximal tibial tuberosity to distal digit. No appreciable edema to bilateral foot or ankle. Neurological: Gross sensation is intact. Protective sensation is intact. Dermatologic: No ecchymosis. No edema. Interdigital spaces are clean dry and intact. Musculoskeletal: No pain on palpation to the fifth metatarsal base, right foot. Patient is able to wiggle digits. Ankle joint range of motion is intact. Muscle strength is 5/5 to dorsiflexors, plantar flexors, inverters and everters. Compartments soft and compressible. No calf pain Diagnoses: 1. Closed nondisplaced fracture of fifth metatarsal bone of right foot with routine healing, subsequent encounter Imaging: Right foot 3 views weightbearing radiographs were ordered and interpreted as follows: Improved osseous consolidation/trabeculation at the base of the fifth metatarsal fracture site in comparison to prior radiographs. Assessment/Plan: Patient was seen and evaluated. Discussed all clinical findings. I ordered, interpreted, and discussed right foot radiographic findings with patient as noted above. Patient's fracture site on the right foot fifth metatarsal base is healing well. No discrete fracture line noted. Instructed the patient to begin to transition out of the tall cam boot into good supportive tennis shoes. Patient can transition to all activity as tolerated. All questions were answered to patient satisfaction. Patient understands to call with any questions or concerns. Follow-up as needed. This note was partially created using voice recognition software and is inherently subject to errors including those of syntax and sound-alike substitutions which may escape proofreading. In such instances, original meaning may be extrapolated by contextual derivation. Reina Jaramillo DPM, [place] Podiatric Physician & Surgeon documented in this encounter [facility] 12-30-2023 Note Julian Bardales PM Patient Name: Larry Goddard. . Date of : 1965, 58 y.o.. Gender: female. Subjective: Patient is a pleasant 58-year-old female who presents to clinic for follow-up evaluation regarding her right fifth metatarsal base fracture. Patient has been strictly nonweightbearing in a tall cam boot. Patient states that she has been elevating and icing. Reports that her pain has improved significantly. Denies any recent trauma or injury. Denies fevers, chills, nausea, vomiting, chest pain, shortness of breath, or any other constitutional symptoms. Past Medical History: Diagnosis Date Fibromyalgia Past Surgical History: Procedure Laterality Date HYSTERECTOMY Social History Socioeconomic History Marital status: Tobacco Use Smoking status: Never Passive exposure: Never Smokeless tobacco: Never Vaping Use Vaping status: Never Used Substance and Sexual Activity Drug use: Never Physical Examination: BP 122/72 (BP Location: Left arm, Patient Position: Sitting, BP Cuff Size: Adult) Pulse 82 Temp 97.9 degrees F (36.6 degrees C) (Infrared) LMP (LMP Unknown) General Appearance: Alert, cooperative, no distress, appears stated age. Podiatric Exam Vascular: DP and PT pulses are palpable 2/4. Capillary refill time is less than 3 secs to distal digits. Skin temperature is warm to warm from proximal tibial tuberosity to distal digit. No appreciable edema to bilateral foot or ankle. Neurological: Gross sensation is intact. Protective sensation is intact. Dermatologic: No ecchymosis. No edema. Interdigital spaces are clean dry and intact. Musculoskeletal: Minimal pain on palpation to the fifth metatarsal base, right foot. Patient is able to wiggle digits. Ankle joint range of motion is intact. Muscle strength is 5/5 to dorsiflexors, plantar flexors, inverters and everters. Compartments soft and compressible. No calf pain Diagnoses: 1. Nondisplaced fracture of fifth metatarsal bone, right foot, initial encounter for closed fracture 2. Right foot pain Imaging: Right foot 3 views weightbearing radiographs were ordered and interpreted as follows: Improved osseous consolidation/trabeculation at the base of the fifth metatarsal fracture site in comparison to prior radiographs. Assessment/Plan: Patient was seen and evaluated. Discussed all clinical findings. I ordered, interpreted, and discussed right foot radiographic findings with patient as noted above. Patient's fracture site on the right foot fifth metatarsal base is healing. Instructed the patient to begin to transition to weightbearing as tolerated in her tall cam boot. Patient is to continue offloading as much as possible, elevating, icing, etc. Patient is to follow-up in 3 weeks for reevaluation and new x-rays. This note was partially created using voice recognition software and is inherently subject to errors including those of syntax and sound-alike substitutions which may escape proofreading. In such instances, original meaning may be extrapolated by contextual derivation. Reina Jaramillo DPM, MS Podiatric Physician & Surgeon AUTHENTICATED BY REINA JARAMILLO, ON 12/30/2023 03:39:36 [facility] 12-30-2023 History of Presen t illness Narrative Images from the original note were not included. Reina Jaramillo DPM Patient Name: Larry Goddard. . Date of : 1965, 58 y.o.. Gender: female. Subjective: Patient is a pleasant 58-year-old female who presents to clinic for follow-up evaluation regarding her right fifth metatarsal base fracture. Patient has been strictly nonweightbearing in a tall cam boot. Patient states that she has been elevating and icing. Reports that her pain has improved significantly. Denies any recent trauma or injury. Denies fevers, chills, nausea, vomiting, chest pain, shortness of breath, or any other constitutional symptoms. Past Medical History: Diagnosis Date Fibromyalgia Past Surgical History: Procedure Laterality Date HYSTERECTOMY Social History Socioeconomic History Marital status: Tobacco Use Smoking status: Never Passive exposure: Never Smokeless tobacco: Never Vaping Use Vaping status: Never Used Substance and Sexual Activity Drug use: Never Physical Examination: BP 122/72 (BP Location: Left arm, Patient Position: Sitting, BP Cuff Size: Adult) Pulse 82 Temp 97.9 F (36.6 C) (Infrared) LMP (LMP Unknown) General Appearance: Alert, cooperative, no distress, appears stated age. Podiatric Exam Vascular: DP and PT pulses are palpable 2/4. Capillary refill time is less than 3 secs to distal digits. Skin temperature is warm to warm from proximal tibial tuberosity to distal digit. No appreciable edema to bilateral foot or ankle. Neurological: Gross sensation is intact. Protective sensation is intact. Dermatologic: No ecchymosis. No edema. Interdigital spaces are clean dry and intact. Musculoskeletal: Minimal pain on palpation to the fifth metatarsal base, right foot. Patient is able to wiggle digits. Ankle joint range of motion is intact. Muscle strength is 5/5 to dorsiflexors, plantar flexors, inverters and everters. Compartments soft and compressible. No calf pain Diagnoses: 1. Nondisplaced fracture of fifth metatarsal bone, right foot, initial encounter for closed fracture 2. Right foot pain Imaging: Right foot 3 views weightbearing radiographs were ordered and interpreted as follows: Improved osseous consolidation/trabeculation at the base of the fifth metatarsal fracture site in comparison to prior radiographs. Assessment/Plan: Patient was seen and evaluated. Discussed all clinical findings. I ordered, interpreted, and discussed right foot radiographic findings with patient as noted above. Patient's fracture site on the right foot fifth metatarsal base is healing. Instructed the patient to begin to transition to weightbearing as tolerated in her tall cam boot. Patient is to continue offloading as much as possible, elevating, icing, etc. Patient is to follow-up in 3 weeks for reevaluation and new x-rays. This note was partially created using voice recognition software and is inherently subject to errors including those of syntax and sound-alike substitutions which may escape proofreading. In such instances, original meaning may be extrapolated by contextual derivation. Reina Jaramillo DPM, [place] Podiatric Physician & Surgeon documented in this encounter [facility] 12-27-2023 Instructions Reina Jaramillo DPM - 12/27/2023 1:47 PM EDT Knee high compression socks (Mild compression): 8-15 mmHg On blogTV documented in this encounter [facility] 12-07-2023 Note Patient follows up t genie for a right fifth met base fracture consistent with a Conner. Patient states she is doing really well. Pain is minimal at best, she is compliantly been using her crutches and cast without any issue falls or new trauma. No shortness of breath or calf pain. Physical Vascular: DP PT pulses are easily palpable. Cast is removed. CFT is normal no edema. Calf is soft and supple. Derm: No erythema no open wounds no ulcers no rashes no deep nodules. Neuro: Light touch is normal Babinski's is normal. Musculoskeletal: No pain to the fifth met base today, minimal pain with forced plantarflexion Radiographs reviewed: Appropriate trabeculation present. Additionally reviewed prior radiographs. Assessment and plan: Patient is a pleasant 58-year-old female with improved fifth met base fracture. Today did cast. Can titrate to protected weightbearing in the cam boot with crutches for balance. Follow-up in 2 to 3 weeks for 1 month set of radiographs and likely transition back to tennis shoes. Patient can drive as long as she takes her boot off. AUTHENTICATED BY FRANCISCO CANDELARIA JR., ON 12/07/2023 16:18:42 [facility] 12-07-2023 History of Presen t illness Narrative Patient follows up today for a right fifth met base fracture consistent with a Conner. Patient states she is doing really well. Pain is minimal at best, she is compliantly been using her crutches and cast without any issue falls or new trauma. No shortness of breath or calf pain. Physical Vascular: DP PT pulses are easily palpable. Cast is removed. CFT is normal no edema. Calf is soft and supple. Derm: No erythema no open wounds no ulcers no rashes no deep nodules. Neuro: Light touch is normal Babinski's is normal. Musculoskeletal: No pain to the fifth met base today, minimal pain with forced plantarflexion Radiographs reviewed: Appropriate trabeculation present. Additionally reviewed prior radiographs. Assessment and plan: Patient is a pleasant 58-year-old female with improved fifth met base fracture. Today did cast. Can titrate to protected weightbearing in the cam boot with crutches for balance. Follow-up in 2 to 3 weeks for 1 month set of radiographs and likely transition back to tennis shoes. Patient can drive as long as she takes her boot off. documented in this encounter [facility] 11-15-2023 Note Procedure note: Patient is a pleasant 58-year-old female who presents to clinic today for application of short leg cast to the right foot for strict immobilization and management of her minimally displaced fifth metatarsal fracture on the right foot. This is because the previously prescribed tall cam boot is a bit too loose and her foot wiggles a bit inside despite padding it and inflating air bladder. After removal of the tall cam boot, the right lower extremity was well-padded with stockinette and several layers of cast padding prior to application of fiberglass cast. The foot and leg were casted 90 degree alignment. Patient understands to keep the cast clean and dry at all times. Follow-up in 3 weeks [address] my partner Dr[address] Candelaria during my absence. Reina Jaramillo DPM, MS Podiatric Physician & Surgeon AUTHENTICATED BY REINA JARAMILLO, ON 11/15/2023 09:04:08 [facility] 11-15-2023 History of Presen t illness Narrative Images from the original note were not included. Procedure note: Patient is a pleasant 58-year-old female who presents to clinic today for application of short leg cast to the right foot for strict immobilization and management of her minimally displaced fifth metatarsal fracture on the right foot. This is because the previously prescribed tall cam boot is a bit too loose and her foot wiggles a bit inside despite padding it and inflating air bladder. After removal of the tall cam boot, the right lower extremity was well-padded with stockinette and several layers of cast padding prior to application of fiberglass cast. The foot and leg were casted 90 degree alignment. Patient understands to keep the cast clean and dry at all times. Follow-up in 3 weeks with my partner Dr. Candelaria during my absence. Reina Jaramillo DPM, MS Podiatric Physician & Surgeon documented in this encounter [facility] 11-15-2023 Instructions Ban Adkins, TECHNOLOGIST - 11/15/2023 7:57 AM EDT CAST POLICY: The following are some guidelines for your cast: *Elevate your cast leg to reduce the chance of swelling. *Put bagged ice on the cast/ or behind the knee to help reduce swelling and pain. *Bend your knee often to stimulate circulation. *If your toes turn blue or the cast feels too tight, and you have been elevating your leg appropriately, please call our office. *Allow 2-3 hours for the fiberglass cast to dry. *DO NOT get the cast wet. *If you damage your cast, or get the cast wet, resulting in a cast replacement, there is a $185 charge. This extra charge will NOT be billed to your insurance company- the cast replacement fee will be the patient's responsibility. documented in this encounter [facility] 11-14-2023 History of Presen t illness Narrative Follow-up documented in this encounter [facility] 11-14-2023 Note Follow-up AUTHENTICATED BY REINA JARAMILLO, ON 11/25/2023 15:00:31 [facility] 10-25-2023 History of Presen t illness Narrative Images from the original note were not included. NEW Patient Visit Reina Jaramillo DPM Patient Name: Larry Goddard. . Date of : 1965, 58 y.o.. Gender: female. Subjective: Patient is a pleasant 58-year-old female who presents to clinic for evaluation and management on her right foot fracture and heel pain. Patient states that she missed a step and came down on the outside part of her foot on 10/21/2023. Patient later went to the ER next day and was informed of fracture to her fifth metatarsal bone. Denies any other trauma or injury. Patient reports that she has been nonweightbearing using her crutches. Denies fevers, chills, nausea, vomiting, chest pain, shortness of breath, or any other constitutional symptoms. Past Medical History: Diagnosis Date Fibromyalgia Past Surgical History: Procedure Laterality Date HYSTERECTOMY Social History Socioeconomic History Marital status: Tobacco Use Smoking status: Never Passive exposure: Never Smokeless tobacco: Never Vaping Use Vaping Use: Never used Substance and Sexual Activity Drug use: Never Physical Examination: BP 113/80 (BP Location: Left arm, Patient Position: Sitting, BP Cuff Size: Adult) Pulse 85 Temp 97.9 F (36.6 C) (Temporal) LMP (LMP Unknown) General Appearance: Alert, cooperative, no distress, appears stated age. Podiatric Exam Vascular: DP and PT pulses are palpable 2/4. Capillary refill time is less than 3 secs to distal digits. Skin temperature is warm to warm from proximal tibial tuberosity to distal digit. Localized edema noted to the dorsal lateral right foot. Neurological: Gross sensation is intact. Protective sensation is intact. Dermatologic: No ecchymosis. No open wounds or ulcerations. No skin tenting. Interdigital spaces are clean dry and intact. Musculoskeletal: Pain on palpation along the base of the fifth metatarsal, right foot. Patient is able to wiggle digits. Ankle joint range of motion is intact. Muscle strength is deferred. Compartments soft and compressible. No calf pain Diagnoses: 1. Nondisplaced fracture of fifth metatarsal bone, right foot, initial encounter for closed fracture Handicap Placard 2. Right foot pain Handicap Placard Imaging: Right foot 3 views weightbearing radiographs were ordered and interpreted as follows: Nondisplaced fifth metatarsal base fracture No other fractures or dislocations noted. Assessment/Plan: Patient was seen and evaluated. Discussed all clinical findings. I ordered, interpreted, and discussed right foot radiographic findings with patient as noted above. Patient has sustained a nondisplaced fifth metatarsal base fracture to the right foot. Discussed with patient that given that this fracture type is nondisplaced, no need to proceed with any surgical intervention. However, discussed with patient that this fracture location/site (Conner fracture; at the metaphyseal-diaphyseal junction) is known for high risk for nonunion and therefore, strict immobilization is needed. A tall cam boot was prescribed, fitted and dispensed the patient in the office. Patient was ambulatory prior to this incident and is expected to regain ambulatory status after complete healing of injury. Discussed importance of compression for edema control, elevation, and ice behind the knee or to the lateral right foot. All questions were answered to patient satisfaction. Patient understands to call with any questions or concerns. Follow-up in 3 weeks for reevaluation and new x-rays. This note was partially created using voice recognition software and is inherently subject to errors including those of syntax and sound-alike substitutions which may escape proofreading. In such instances, original meaning may be extrapolated by contextual derivation. Reina Jaramillo DPM, MS Podiatric Physician & Surgeon documented in this encounter [facility] Evaluation note Diagnosis Nondisplaced fracture of fifth metatarsal bone, right foot, initial encounter for closed fracture- Primary Right foot pain Pain in soft tissues of limb [facility] Diagnosis Nondisplaced fracture of fifth metatarsal bone, right foot, initial encounter for closed fracture- Primary Right foot pain Pain in soft tissues of limb [facility] Diagnosis Nondisplaced fracture of fifth metatarsal bone, right foot, initial encounter for closed fracture- Primary Right foot pain Pain in soft tissues of limb [facility] Diagnosis Nondisplaced fracture of fifth metatarsal bone, right foot, initial encounter for closed fracture- Primary [facility] Diagnosis Closed nondisplaced fracture of fifth metatarsal bone of right foot with routine healing, subsequent encounter- Primary documented in this encounter [facility] Summary Purpose Family History No Family History Records FoundNo Family History Records FoundNo Family History Records Found Advance Directives No Advanced Directives Records FoundNo Advanced Directives Records FoundNo Advanced Directives Records Found Additional Source Comments INFORMATION SOURCE (unrecogn ized section and content) DATE CREATED AUTHOR 12/18/2018 [facility] DATE CREATED AUTHOR AUTHOR'S ORGANIZ ATION 11/15/2023 [facility] DATE CREATED AUTHOR AUTHOR'S ORGANIZ ATION 01/24/2024 [facility] Reason for Visit (unrecogniz ed section and content) Reason Comments Foot Fracture Patient presents for right foot fracture, heel pain. Patient missed step, came down on outside of foot 10/20. Patient went to ER next day Reason Comments Procedure Patient is here to h ave cast applied. Reason Comments Follow-up Follow up x-rays rig ht 5th metatarsal fracture, right foot. Patient states she came down on foot when she almost fell down steps. Reason Comments Follow-up Patient presents for follow up cast application, three weeks. Patient is normally under the care of Dr Jaramillo. Patient reports mild pain Reason Comments Follow-up Follow up x-rays rig ht foot. Reason Comments Follow-up Follow up x-ray righ t 5th metatarsal fracture. Care Teams (unrecognized sec tion and content) Oncology Admin Relationship Specialty Start Date End Date Yared Elliott MD [address] [facility] [address] [place] [address] PCP - General Family Medicine 10/22/23 Oncology Admin Relationship Specialty Start Date End Date Yared Elliott MD [address] [facility] [address] [place] [address] PCP - General Family Medicine 10/22/23 Oncology Admin Relationship Specialty Start Date End Date Yared Elliott MD [address] [facility] [address] [place] [address] PCP - General Family Medicine 10/22/23 Oncology Admin Relationship Specialty Start Date End Date Yared Elliott MD [address] [facility] [address] [place] [address] PCP - General Family Medicine 10/22/23 Oncology Admin Relationship Specialty Start Date End Date Yared Elliott MD [address] [facility] [address] [place] [address] PCP - General Family Medicine 10/22/23 FOR RECORDS PERTAINING TO PATIENTS WHO ARE OR HAVE BEEN ENROLLED IN A CHEMICAL DEPENDENCY/SUBSTANCEABUSE PROGRAM, SOME INFORMATION MAY BE OMITTED. This clinical summary was aggregated from multiple sources. Caution should be exercised in using it in the provision of clinical care. This summary normalizes information from multiple sources, and as a consequence, information in this document may materially change the coding, format and clinical context of patient data. In addition, data may be omitted in some cases. CLINICAL DECISIONS SHOULD BE BASED ON THE PRIMARY CLINICAL RECORDS. [facility] [facility]. provides no warranty or guarantee of the accuracy or completeness of information in this document.
[2024-04-27] MEDS: Acetaminophen 500 MG Tablet 1000 MG PO (17:59)
[2024-04-27] MEDS: Diphth,Pertuss(Acell),Tet Vac 0.5 ML Vial IM (18:00)
[2024-04-27 18:55] VITALS: BP 139/76; PULSE 81; RESP 16; O2SAT 97
[2024-04-27 19:37] VITALS: BP 125/80; PULSE 70; RESP 16; TEMP 36.9; O2SAT 97
== END 2024-04-27 19:47 | disposition home or self-care (01) ==
PROVIDERS: Emergency Provider Emergency Medicine; PCP Family Medicine; Visit Provider Emergency Medicine
DX: R51.9 Headache, unspecified (principal); M79.675 Pain in left toe(s); V89.2XXA Person injured in unspecified motor-vehicle accident, traffic, initial encounter; M79.7 Fibromyalgia; Z91.011 Allergy to milk products; Z23 Encounter for immunization
CPT/HCPCS: 70450; 72125; 73630; 90471; 90715; 99284

== ENCOUNTER → 2024-07-18 | Outpatient (CLI) | payer BC, SELFPAY ==
--- NOTE | 2024-07-18 10:51 | US_ITS ---
STUDY: ULTRASOUND BREAST - RIGHT REASON FOR EXAM: Female, 58 years old. Six-month follow-up for postbiopsy follow-up. TECHNIQUE: Axial and longitudinal images of the RIGHT breast were performed with a high resolution ultrasound transducer. # OF IMAGES: 45 COMPARISON: Comparison is made with prior study dated December 20, 2023. FINDINGS: RIGHT Breast: The upper-outer quadrant of the breast was examined with ultrasound. There is a 5 mm x 3 mm x 4 mm hypoechoic solid nodule at the 11:00 position the breast at 4 cm from the nipple. A tissue clip marker is seen within it. Stable 8 mm x 3 mm x 6 mm hypoechoic solid nodule at the 11 to 12:00 position of the breast at 2 cm from nipple. US/Breast Limited Unilateral IMPRESSION: Stable examination. ASSESSMENT CATEGORY: BIRADS Category 2: Benign. A letter regarding these results will be sent to the patient by the facility within 30 days. Electronically Signed: Dylan Palencia MD at 12:18 EST ,
== END | disposition home or self-care (01) ==
PROVIDERS: PCP Family Medicine; Referring Provider Surgery; Visit Provider Surgery
DX: R92.8 Other abnormal and inconclusive findings on diagnostic imaging of breast (principal)

== ENCOUNTER 2024-11-13 09:03 | Outpatient (CLI) | payer BC, SELFPAY ==
[2024-11-13 10:22] LABS: Erythrocyte Sedimentation Rate 13 mm/hr (0-30)
[2024-11-13 10:50] LABS: ALB/GLOB Ratio 1.5 RATIO (0.9-2.4); AST(SGOT) 19 U/L (<=31); Alanine Aminotransfer ALT/SGPT 15 U/L (<=34); Albumin, Serum 4.3 g/dL (3.5-5.0); Alkaline Phosphatase 76 U/L (35-104); Anion Gap 13 (5-15); BUN 10 mg/dL (4-19); BUN/Creat Ratio 15.2 RATIO (10-20); Calcium,Total 9.6 mg/dL (7.6-11.0); Carbon Dioxide 23.3 mmol/L (21.0-32.0); Chloride 105 mmol/L (98-108); Creatinine, Serum 0.69 mg/dL (0.70-1.20); EST Glomerular Filtration Rate 101 (>60); Globulin 2.9 g/dL (2.2-4.2); Glucose 104 mg/dL (70-99); Potassium 4.2 mmol/L (3.3-5.1); Protein, Total 7.2 g/dL (5.9-8.4); Sodium Level 141 mmol/L (133-145); Total Bilirubin 0.29 mg/dL (0.00-1.30)
[2024-11-13 11:18] LABS: Thyroid Stim Hormone (TSH) 0.977 uIU/mL (0.300-4.200); Vitamin B12 514 pg/mL (180-914); Vitamin D,25 Hydroxy 58.3 ng/mL (30-100)
== END 2024-11-13 23:59 | disposition home or self-care (01) ==
LOC: MTLAB 09:03
PROVIDERS: PCP Family Medicine; Referring Provider Family Medicine; Visit Provider Family Medicine
DX: Z00.00 Encounter for general adult medical examination without abnormal findings (principal); M79.7 Fibromyalgia; E55.9 Vitamin D deficiency, unspecified; Z13.220 Encounter for screening for lipoid disorders; R79.82 Elevated C-reactive protein (CRP)
CPT/HCPCS: 36415; 80053; 82306; 82607; 84443; 85652